=== PATIENT | male | born 1985 | race Caucasian/White ===

== ENCOUNTER 2025-03-30 04:06 | Emergency (ER) | payer OTHER, SELFPAY ==
[2025-03-30] VITALS (12 sets, daily range): BP systolic 142–176; BP diastolic 85–110; PULSE 91–100; RESP 12–38; O2SAT 93–97; BMI 28.5
--- NOTE | 2025-03-30 04:04 | EKG_ITS ---
[address] [address] Test Date: 2025-03-30 Pat Name: Nemesio Amador Department: Room: Gender: Male [employer] Operator: DAMON : 1985 Requested By: Order Number: [id number] Reading MD: Parveen Awan MD Measurements Intervals [place] Rate: 98 P: 27 AR: 164 QRS: 7 QRSD: 86 T: 42 QT: 340 QTc: 434 Interpretive Statements Normal sinus rhythm Electronically Signed On 04-13-2025 8:55:59 PST by Parveen Awan MD
--- NOTE | 2025-03-30 04:30 | ED_ITS ---
HPI - Chest Pain General Chief Complaint: Chest Pain Stated Complaint: chest pain Time Seen by Provider: 03/30/25 04:11 Source: patient and EMS Mode of arrival: EMS Limitations: no limitations History of Present Illness HPI narrative: 39-year-old male with no cardiac history but does take testosterone and sildenafil for the past 3 years off and on. Patient woke up in the middle night with acute substernal chest pain but it has subsided some so the point where he was able to go back to sleep but the pain reappeared after a couple hours prompting him to call ems to bring him in. He denies shortness of breath or any other symptoms. No radiation of the pain. Related Data Allergies Allergy/AdvReac Type Severity Reaction Status Date / Time No Known Drug Allergies Allergy Verified 03/30/25 04:11 Review of Systems Review of Systems ROS Unobtainable: All systems reviewed & are unremarkable except as noted in HPI and below Patient History tobacco type: vaping Exam Narrative Exam Narrative: General: Patient appears to be in no acute distress, acting appropriately Head: normocephalic, atraumatic, HEENT: Pupils equal round reactive, eyes tracking well, neck supple, no JVD Heart: regular rate and rhythm, no murmurs, rubs, or gallops heard Lungs: clear to auscultation, no adventitious sounds Abdomen: soft , nontender, nondistended, positive bowel sounds Neurological: no focal neurological signs, moving all extremities well, alert and oriented x3, Psych: good judgment ,good insight, mood is normal. Initial Vital Signs Initial Vital Signs: Vital Signs Pulse Rate 95 H 03/30/25 04:14 Pulse Oximetry 96 03/30/25 04:14 Oxygen Delivery Method Room Air 03/30/25 04:14 Scores HEART Score Heart Score history: Slightly Suspicious Heart Score EKG: Normal Heart Score Age: < 45 years old Heart Score risk factors: No known risk factors Heart Score troponin: < or = to normal limit Heart Score Total: 0 Course Orders Ordered: Discontinued Medications Al Hydrox/Mg Hydrox/Simethicone 30 ml/ Lidocaine HCl 15 ml 0 ml PO NOW ONE Stop: 03/30/25 05:14 Last Admin: 03/30/25 05:16 Dose: 45 ml Documented By: MIGUEL ANGEL Ketorolac Tromethamine (Ketorolac 30 Mg/Ml Vial) 15 mg INJ NOW ONE Stop: 03/30/25 08:07 Last Admin: 03/30/25 08:10 Dose: 15 mg Documented By: DEBBIE Labetalol HCl (Labetalol 20 Mg/4 Ml Syringe) 5 mg IV NOW ONE Stop: 03/30/25 06:26 Morphine Sulfate (Morphine 2 Mg/Ml Inj) 2 mg IV Q2HR PRN PRN Reason: Pain, Moderate (4-6) Morphine Sulfate (Morphine 4 Mg/Ml Inj) 2 mg IV NOW ONE Stop: 03/30/25 05:39 Last Admin: 03/30/25 05:41 Dose: 2 mg Documented By: MIGUEL ANGEL MDM - Chest Pain Lab Data 03/30/25 04:45 03/30/25 05:03 Labs: Lab Results 03/30/25 03/30/25 Range/Units 04:45 05:03 WBC 9.0 (4.5-11.0) X10^3/uL RBC 5.76 (4.5-5.9) X10^6/uL Hgb 18.7 H (13.5-17.5) g/dL Hct 54.2 H (41-53) % MCV 94.1 (80-100) fL MCH 32.5 (26-34) PG MCHC 34.5 (30-36) % RDW 13.0 (11.6-14.8) % Plt Count 175 (150-400) X10^3/uL Neut % (Auto) 85.6 H (50-75) % Lymph % (Auto) 9.0 L (25-40) % [place] % (Auto) 4.3 (3-14) % Eos % (Auto) 0.6 L (2-4) % Baso % (Auto) 0.5 (0-2) % Neut # (Auto) 7700 H (0382-1512) /uL Lymph # (Auto) 800 L (3562-7260) /uL [place] # (Auto) 400 (0-900) /uL Eos # (Auto) 0 (0-450) /uL Baso # (Auto) 0 (0-100) /uL PT 9.6 (9.4-12.5) SECONDS INR 0.8 L (0.9-1.3) APTT 27 (25.1-36.5) SECONDS Sodium 139 (137-145) mmol/L Potassium 4.6 (3.4-5.1) mmol/L Chloride 104 (98-107) mmol/L Carbon Dioxide 24 (22-32) mmol/L BUN 11 (9-20) mg/dL Creatinine 0.79 (0.66-1.25) mg/dL Estimated GFR > 60 (>60) mL/min BUN/Creatinine Ratio 13.9 (6-22) Glucose 131 H (70-99) mg/dL Calcium 9.4 (8.4-10.2) mg/dL Magnesium 1.8 (1.6-2.3) mg/dL Total Bilirubin 0.5 (0.2-1.3) mg/dL AST 38 (17-59) IU/L ALT 36 (<50) IU/L Alkaline Phosphatase 90 (38-126) U/L Total Creatine Kinase 136 (55-170) U/L Troponin I < 0.012 (0.01-0.034) ng/mL NT-Pro-B Natriuret Pep < 20 (<125) pg/mL Total Protein 8.4 H (6.3-8.2) g/dL Albumin 5.0 (3.5-5.0) g/dL Globulin 3.4 (1.7-4.1) g/dL Albumin/Globulin Ratio 1.5 (1.0-2.8) Lipase 53 (23-300) U/L Imaging Data Chest x-ray: My Impression: no acute process CT scan - chest: Radiologist's Impression: No pulmonary embolus. No acute cardiopulmonary process. Small volume ducts hepatics simple free fluid, this may be secondary to hepatitis or underlying abdominal pathology. Recommend right upper quadrant ultrasound for further evaluation of liver including the hepatic veins and portal venous system. Small hiatal hernia. ECG Data Interpretation: Normal sinus rhythm 90 beats per minute normal axis, normal MD intervals no STT wave changes no previous EKG to compare with. MDM Narrative Medical decision making narrative: 39-year-old female who was seen for acute substernal chest pain. Workup reassuring for not being cardiac in origin. Chest CTA negative for any acute cardiopulmonary process. Labs and EKG reassuring as well. Heart score 0. Patient advised to follow up if chest pain resumes or worsens. Discharge Plan Departure Patient Disposition: Home Clinical Impression: Atypical chest pain, Hernia, hiatal Instructions: DI for Atypical Chest Pain Activity Restrictions/Additional Instructions: You were seen in the emergency department for your chest pain. Evaluation here including examination, lab work, and CT imaging was overall reassuring and did not demonstrate any evidence of an acute process that would require intervention or admission to the hospital at this time. Your imaging does demonstrate a small hiatal hernia, although there is no evidence to suggest a complication from this hernia at this time. We do recommend close follow-up with your primary care provider and any specialists in the outpatient setting. If you develop worsening chest pain, shortness of breath, severe vomiting or syncope, other symptoms that are concerning to you, please return to the emergency department for further evaluation. Stand Alone Forms: Patient Portal/API
--- NOTE | 2025-03-30 04:33 | DI.RAD.S_ITS ---
PROCEDURE: XR CHEST 1V INDICATIONS: Chest Pain TECHNIQUE: One view of the chest was acquired. COMPARISON: None. FINDINGS: Surgical changes and devices: None. Lungs and pleura: Lungs are clear. No pleural effusions or pneumothorax. Mediastinum: Mediastinal contours appear normal. Heart size is normal. Bones and chest wall: No suspicious bony lesions. Overlying soft tissues appear unremarkable. IMPRESSION: No acute cardiopulmonary abnormality is seen. Findings are concordant preliminary interpretation provided by [facility]. Dictated by: Ken Boothe M.D. on 03/30/2025 at 7:54 Approved by: Ken Boothe M.D. on 03/30/2025 at 7:54
[2025-03-30 04:53] LABS: Add Manual Diff / Slide Review NO; Hematocrit 54.2 % (41-53); Hemoglobin 18.7 g/dL (13.5-17.5); Lymphocytes Absolute Auto 800 /uL (1100-4500); Mean Corpuscular HGB Conc 34.5 % (30-36); Mean Corpuscular Hemoglobin 32.5 PG (26-34); Mean Corpuscular Volume 94.1 fL (80-100); Platelet Count 175 X10^3/uL (150-400)
[2025-03-30 04:58] LABS: INR 0.8 (0.9-1.3); Prothrombin Time 9.6 SECONDS (9.4-12.5)
[2025-03-30 05:01] LABS: PTT Partial Thromboplastin Tim 27 SECONDS (25.1-36.5)
--- NOTE | 2025-03-30 05:03 | PC.NURSE ---
Pt prefers to sit in chair instead of lying in stretcher
[2025-03-30] MEDS: MAG HYDROX/ALUMINUM/SIMETH SUS 30 ML, LIDOCAINE VISCOUS 2% 15 ML PO (05:16)
[2025-03-30 05:28] LABS: Alanine Aminotransferase 36 IU/L (<50); Albumin 5.0 g/dL (3.5-5.0); Albumin Globulin Ratio 1.5 (1.0-2.8); Alkaline Phosphatase 90 U/L (38-126); Blood Urea Nitrogen 11 mg/dL (9-20); Calcium 9.4 mg/dL (8.4-10.2); Carbon Dioxide 24 mmol/L (22-32); Chloride 104 mmol/L (98-107); Creatine Kinase 136 U/L (55-170); Estimated Glomerular Filt Rate > 60 mL/min (>60); Globulin 3.4 g/dL (1.7-4.1); Glucose 131 mg/dL (70-99); HEMOLYSIS 46 (0-50); Lipase 53 U/L (23-300); Magnesium 1.8 mg/dL (1.6-2.3); Potassium 4.6 mmol/L (3.4-5.1); Sodium 139 mmol/L (137-145); Total Protein 8.4 g/dL (6.3-8.2)
--- NOTE | 2025-03-30 05:32 | PC.NURSE ---
Pt ambulatory to restroom without difficulty or assistance
[2025-03-30 05:40] LABS: NT-proBNP (BNP-Adult 18+) < 20 pg/mL (<125); Troponin I < 0.012 ng/mL (0.01-0.034)
[2025-03-30] MEDS: MORPHINE 4 MG/ML INJ 2 MG IV (05:41)
--- NOTE | 2025-03-30 05:44 | DI.CT.S_ITS ---
PROCEDURE: CT ANGIO CHEST INDICATIONS: substernal chest pain TECHNIQUE: After the administration of intravenous contrast, 2 mm thick sections acquired from the pulmonary apices to the posterior costophrenic angles. 3-dimensional maximum intensity projection (MIP) coronal and sagittal reformats were then acquired through the thorax. For radiation dose reduction, the following was used: automated exposure control, adjustment of mA and/or kV according to patient size. COMPARISON: None. FINDINGS: Image quality: Diagnostic. Pulmonary arteries: Pulmonary arteries are normal in size, and demonstrate no intraluminal filling defects to suggest central pulmonary embolism. Lower Neck: No enlarged lymph nodes. Thyroid: No thyroid nodules which require sonographic follow up, per consensus guidelines. Axillae: No enlarged lymph nodes. Chest Wall: Unremarkable. Bones: Unremarkable. Lungs and Pleura: No pneumothorax or pleural effusions. No consolidation or suspicious nodules. A smoothly marginated triangular intra fissural nodule in the left major fissure likely represents an intra fissural lymph node. Heart: Heart size is normal. No pericardial effusion. Thoracic Vessels: No aortic aneurysm. Mediastinum and Lisa: No enlarged lymph nodes. Esophagus: No wall thickening. Small hiatal hernia. Upper Abdomen: Small volume juxta hepatic simple free fluid and ascites.. IMPRESSION: No pulmonary embolus. No acute cardiopulmonary process. Small volume ducts hepatics simple free fluid, this may be secondary to hepatitis or underlying abdominal pathology. Recommend right upper quadrant ultrasound for further evaluation of liver including the hepatic veins and portal venous system. Small hiatal hernia. Dictated by: Ken Boothe M.D. on 03/30/2025 at 7:45 Approved by: Ken Boothe M.D. on 03/30/2025 at 7:49
--- NOTE | 2025-03-30 05:47 | PC.NURSE ---
Pt states no relief from GI cocktail
--- NOTE | 2025-03-30 06:00 | PC.NURSE ---
Pt restless and seems anxious, moving from lying in ED stretcher to sitting in chair or standing moving around exam room.
--- NOTE | 2025-03-30 06:07 | PC.NURSE ---
Pt to imaging via wheelchair with page technician
--- NOTE | 2025-03-30 06:58 | PC.NURSE ---
Per Dr. Jo Ann holland at this time d/t decreasing blood pressure
[2025-03-30] MEDS: KETOROLAC 30 MG/ML VIAL 15 MG INJ (08:10)
== END 2025-03-30 08:30 | disposition home or self-care (01) ==
PROVIDERS: Emergency Provider Family Medicine
DX: R07.89 Other chest pain (principal); K44.9 Diaphragmatic hernia without obstruction or gangrene
CPT/HCPCS: 36415; 71045; 71275; 80053; 82550; 83690; 83735; 83880; 84484; 85025; 85610; 85730; 93005; 96374; 96375; 99284; J1885; J2272; Q9967